=== PATIENT | female | born 1980 | race African-American/Black ===

== ENCOUNTER 2021-11-19 09:16 | Emergency (ER) | payer OTHER ==
[2021-11-19 09:22] VITALS: BP 175/89; PULSE 84; RESP 18; TEMP 97.1; BMI 36.3
[2021-11-19] MEDS ORDERED: SODIUM CHLORIDE 1,000 ML IV STA (09:40)
[2021-11-19] MEDS ORDERED: ACETAMINOPHEN 1000 MG/100 ML BAG IVPB ONE (09:41)
[2021-11-19] MEDS ORDERED: ACETAMINOPHEN INJECTION 100 ML IVPB ONE (09:52)
[2021-11-19] MEDS ORDERED: LIDOCAINE 5% TOPICAL PATCH ONE (10:11)
[2021-11-19] MEDS ORDERED: LIDOCAINE 5% TOPICAL PATCH TP ONE (10:11)
[2021-11-19 10:22] LABS: URINE APPEARANCE CLEAR; URINE BILIRUBIN NEGATIVE (NEGATIVE); URINE COLOR YELLOW; URINE GLUCOSE (UA) NEGATIVE (NEGATIVE); URINE KETONE NEGATIVE (NEGATIVE); URINE LEUK ESTERASE NEGATIVE (NEGATIVE); URINE NITRITE NEGATIVE (NEGATIVE); URINE PROTEIN NEGATIVE (NEGATIVE); URINE UROBILINOGEN 0.2 mg/dL (0.2-1.0)
[2021-11-19 10:25] LABS: HCG,QUALITATIVE URINE Negative
[2021-11-19 10:45] LABS: BASO % 0.4 % (0-2.0); EOS % 3.3 % (0-4.5); HEMATOCRIT 33.8 % (32.4-45.2); HEMOGLOBIN 10.9 GM/dL (10.7-15.3); LYMPH % 33.7 % (8-40); MCH 25.1 pg (25.7-33.7); MCHC 32.3 g/dl (32.0-36.0); MEAN CELL VOLUME 77.9 fl (80-96); MONO % 10.5 % (3.8-10.2); NEUT % 52.1 % (42.8-82.8); PLATELET COUNT 355 10^3/uL (134-434); RBC 4.34 M/mm3 (3.60-5.2); RDW 15.5 % (11.6-15.6); WHITE BLOOD COUNT 7.1 K/mm3 (4.0-10.0)
[2021-11-19 11:07] LABS: BLOOD UREA NITROGEN 9.7 mg/dL (7-18); CALCIUM 8.9 mg/dL (8.5-10.1)
[2021-11-19 11:08] LABS: ALBUMIN 3.7 g/dl (3.4-5.0)
[2021-11-19 11:10] LABS: CREATININE 0.6 mg/dL (0.55-1.3)
[2021-11-19 11:12] LABS: BILIRUBIN,TOTAL 0.3 mg/dL (0.2-1); TOT PROT 6.9 g/dl (6.4-8.2)
[2021-11-19] MEDS ORDERED: KETOROLAC TROMETHAMINE 30 MG/1 ML VIAL IVPUSH ONE (14:09)
[2021-11-19] MEDS ORDERED: KETOROLAC TROMETHAMINE 30 MG/1 ML VIAL ONE (14:12)
== END 2021-11-19 14:18 | disposition left against medical advice (07) ==
LOC: JERFT 09:16 → JER 09:16
PROC: 3E033GC Introduction of Other Therapeutic Substance into Peripheral Vein, Percutaneous Approach (ICD-10-PCS; principal; 2021-11-19)
DX: M54.50 Low back pain, unspecified (principal)
CPT/HCPCS: 36415; 74176-TC; 76830-TC; 80053; 81003; 83690; 84703; 85025; 87086; 96361; 96374; 96375; 99285-25